=== PATIENT | male | born 1965 | race African-American/Black ===

== ENCOUNTER 2020-12-18 09:47 | Inpatient (IN) | payer MEDICAID, SELFPAY ==
[~2020-12-18] VITALS: Ht 182.9 cm; Wt 58.1 kg
[2020-12-18 09:51] VITALS: BP 128/73
[2020-12-18 10:57] LABS: BASOPHILS # (AUTO) 0.1 K/uL (0.00-0.22); BASOPHILS % (AUTO) 0.7 % (0.0-2.0); EOSINOPHILS % (AUTO) 0.4 % (0.0-4.0); HEMATOCRIT 30.5 % (36-52); HEMOGLOBIN 10.4 g/dL (12.0-18.0); LYMPHOCYTES # (AUTO) 1.1 K/uL (2.0-11.5); LYMPHOCYTES % (AUTO) 12.2 % (20.5-51.1); MEAN CORPUSCULAR HEMOGLOBIN 34 pg (27-31); MEAN CORPUSCULAR HGB CONC 34 g/dL (33-37); MEAN CORPUSCULAR VOLUME 100.6 fL (80-94); MONOCYTES # (AUTO) 0.5 K/uL (0.8-1.0); MONOCYTES % (AUTO) 5.7 % (1.7-9.3); NEUTROPHILS # (AUTO) 7.6 K/uL (1.8-7.7); PLATELET COUNT (AUTO) 390 K/uL (140-450); RED BLOOD CELL COUNT(AUTO) 3.03 MIL/uL (4.20-6.10); RED CELL DISTRIBUTION WIDTH 12.9 % (11.6-13.7); WHITE BLOOD COUNT (AUTO) 9.4 K/uL (4.8-10.8)
[2020-12-18 11:13] LABS: ALBUMIN 2.9 g/dL (3.4-5.0); ANION GAP 5.1 (8-16); ASPARTATE AMINOTRANSFERASE 23 U/L (15-37); CARBON DIOXIDE 30.2 mmol/L (21-32); CHLORIDE 99 mmol/L (98-107); CREATININE 1.2 mg/dL (0.6-1.3); GFR ARICAN-AMERICAN 81 mL/min (>90); POTASSIUM 4.3 mmol/L (3.5-5.1); SODIUM SERUM 130 mmol/L (136-145); TOTAL BILIRUBIN 0.4 mg/dL (0.0-1.0); UREA NITROGEN, BLOOD 19 mg/dL (7-18)
[2020-12-18 11:18] LABS: GLUCOSE 604 mg/dL (74-106)
[2020-12-18] MEDS ORDERED: INSULIN REGULAR, HUMAN 100 UNIT in NACL 0.9% 100 ML IV SCH ×4 (11:20→11:50)
[2020-12-18] MEDS ORDERED: NACL 0.9% 1,000 ML IV ONE ×2 (11:20→15:25)
[2020-12-18 13:15] LABS: BILIRUBIN,URINE NEGATIVE (NEGATIVE); BLOOD, URINE NEGATIVE (NEGATIVE); LEUKOCYTE ESTERASE ,URINE NEGATIVE (NEGATIVE); NITRITE, URINE NEGATIVE (NEGATIVE); UGLUCOSE 3+ (NEGATIVE)
[2020-12-18 13:32] LABS: COLOR,URINE YELLOW (YELLOW)
[2020-12-18 13:48] LABS: APPEARANCE,URINE CLEAR (CLEAR); RBC,URINE 0-5 /HPF (0-5); WBC,URINE 0-5 /HPF (0-5)
[2020-12-18] MEDS ORDERED: DEXT 5% / NACL 0.45% 1,000 ML IV ONE (15:05)
[2020-12-18] MEDS ORDERED: DEXTROSE 50% 50 ML SYR IVP PRN (15:30)
[2020-12-18 16:00] VITALS: BP 136/88
[2020-12-18] MEDS: BLOOD GLUCOSE MONITORING 1 DEV DEV FS SCH ×2 (17:24→21:44)
[2020-12-18] MEDS ORDERED: ACETAMINOPHEN 325 MG TAB PO PRN (18:00)
[2020-12-18] MEDS ORDERED: ONDANSETRON 4 MG/2 ML VIAL IM/IVP PRN (18:00)
[2020-12-18] MEDS ORDERED: guaiFENesin DM 200/20 MG-10 ML 10 ML UDC PO PRN (18:00)
[2020-12-18] MEDS ORDERED: DOCUSATE SODIUM 100 MG GELCAP PO PRN (18:00)
[2020-12-18] MEDS ORDERED: ZOLPIDEM 5 MG TAB PO PRN (18:00)
[2020-12-18] MEDS ORDERED: POTASSIUM CHLORIDE 10 MEQ TABER PO PRN (18:00)
[2020-12-18 18:31] LABS: BARBITURATE, URINE NEGATIVE ng/ml (NEG <=200); BENZODIAZEPINE, URINE NEGATIVE ng/mL (NEG <=200); CANNABINOID, URINE POSITIVE ng/mL (NEG <=50); COCAINE, URINE POSITIVE ng/mL (NEG <=300)
[2020-12-18 18:32] LABS: OPIATE, URINE NEGATIVE ng/mL (NEG <=2000); PHENCYCLIDINE SCREEN,URINE POSITIVE ng/mL (NEG <=25)
[2020-12-18] MEDS: NACL 0.9% 1,000 ML IV SCH (18:32)
[2020-12-18 18:50] LABS: CHOL/HDL RATIO 2.3 (1-4.5); FREE T4 (FREE THYROXINE) 0.99 ng/dL (0.76-1.46); MAGNESIUM 2.2 mg/dL (1.8-2.4); PHOSPHORUS 4.1 mg/dL (2.5-4.9); THYROID STIMULATING HORMONE 1.01 uIU/mL (0.34-3.74)
[2020-12-18 20:00] VITALS: BP 130/82
[2020-12-18] MEDS: HYDROcodone/APAP 7.5/325 MG 1 TAB PO PRN (21:35)
[2020-12-19] VITALS: BP 130/82
[2020-12-19] MEDS: HYDROcodone/APAP 7.5/325 MG 1 TAB PO PRN ×4 (02:06→20:31)
[2020-12-19] MEDS: NACL 0.9% 1,000 ML IV SCH ×3 (02:11→17:25)
[2020-12-19 04:00] VITALS: BP 128/84
[2020-12-19] MEDS: BLOOD GLUCOSE MONITORING 1 DEV DEV FS SCH ×4 (05:41→20:55)
[2020-12-19 06:32] LABS: BASOPHILS # (AUTO) 0.1 K/uL (0.00-0.22); BASOPHILS % (AUTO) 0.8 % (0.0-2.0); EOSINOPHILS # (AUTO) 0.1 K/uL (0-0.4); EOSINOPHILS % (AUTO) 0.8 % (0.0-4.0); HEMATOCRIT 28.2 % (36-52); HEMOGLOBIN 9.6 g/dL (12.0-18.0); LYMPHOCYTES # (AUTO) 1.8 K/uL (2.0-11.5); LYMPHOCYTES % (AUTO) 18.1 % (20.5-51.1); MEAN CORPUSCULAR HEMOGLOBIN 34 pg (27-31); MEAN CORPUSCULAR HGB CONC 34 g/dL (33-37); MEAN CORPUSCULAR VOLUME 100.7 fL (80-94); MONOCYTES # (AUTO) 0.5 K/uL (0.8-1.0); NEUTROPHILS # (AUTO) 7.5 K/uL (1.8-7.7); NEUTROPHILS % (AUTO) 75.3 % (42.2-75.2); PLATELET COUNT (AUTO) 348 K/uL (140-450); RED BLOOD CELL COUNT(AUTO) 2.79 MIL/uL (4.20-6.10); RED CELL DISTRIBUTION WIDTH 12.5 % (11.6-13.7)
[2020-12-19 07:09] LABS: ANION GAP 11.6 (8-16); CARBON DIOXIDE 23.9 mmol/L (21-32); CREATININE 0.9 mg/dL (0.6-1.3); POTASSIUM 4.5 mmol/L (3.5-5.1)
[2020-12-19 08:00] VITALS: BP 132/54
[2020-12-19 08:07] LABS: T4 (THYROXINE) 6.5 ug/dL (4.5-12.0)
[2020-12-19] MEDS: PANTOPRAZOLE 40 MG TABEC PO SCH (08:18)
[2020-12-19 12:00] VITALS: BP 136/73
[2020-12-19] MEDS: INSULIN LISPRO SLIDING SCALE 100 UNITS/ML VIAL SUBQ PRN ×3 (12:31→20:54)
[2020-12-19 16:00] VITALS: BP 135/76
[2020-12-19 20:00] VITALS: BP 128/76
[2020-12-20] VITALS: BP 124/72
[2020-12-20] MEDS: NACL 0.9% 1,000 ML IV SCH ×3 (03:20→20:00)
[2020-12-20 04:00] VITALS: BP 136/70
[2020-12-20] MEDS: BLOOD GLUCOSE MONITORING 1 DEV DEV FS SCH ×4 (06:16→21:09)
[2020-12-20 06:28] LABS: BASOPHILS % (AUTO) 0.6 % (0.0-2.0); EOSINOPHILS # (AUTO) 0.1 K/uL (0-0.4); HEMATOCRIT 28.4 % (36-52); HEMOGLOBIN 9.6 g/dL (12.0-18.0); LYMPHOCYTES # (AUTO) 1.7 K/uL (2.0-11.5); MEAN CORPUSCULAR HEMOGLOBIN 34 pg (27-31); MEAN CORPUSCULAR HGB CONC 34 g/dL (33-37); MEAN CORPUSCULAR VOLUME 100.1 fL (80-94); MONOCYTES # (AUTO) 0.4 K/uL (0.8-1.0); NEUTROPHILS # (AUTO) 4.1 K/uL (1.8-7.7); NEUTROPHILS % (AUTO) 65.4 % (42.2-75.2); PLATELET COUNT (AUTO) 356 K/uL (140-450); RED BLOOD CELL COUNT(AUTO) 2.84 MIL/uL (4.20-6.10); RED CELL DISTRIBUTION WIDTH 12.4 % (11.6-13.7); WHITE BLOOD COUNT (AUTO) 6.3 K/uL (4.8-10.8)
[2020-12-20 06:34] LABS: ANION GAP 10.7 (8-16); CARBON DIOXIDE 24.6 mmol/L (21-32); POTASSIUM 4.3 mmol/L (3.5-5.1)
[2020-12-20 08:00] VITALS: BP 131/79
[2020-12-20] MEDS: glipiZIDE 10 MG TAB PO SCH (08:49)
[2020-12-20] MEDS: PANTOPRAZOLE 40 MG TABEC PO SCH (08:49)
[2020-12-20] MEDS: metFORMIN 500 MG TAB PO SCH ×2 (08:49→16:40)
[2020-12-20] MEDS: HYDROcodone/APAP 7.5/325 MG 1 TAB PO PRN ×3 (08:49→21:05)
[2020-12-20] MEDS: NICOTINE TRANSD SYS 14 MG/24 HR PATCH TD SCH (08:50)
[2020-12-20] MEDS: INSULIN LISPRO SLIDING SCALE 100 UNITS/ML VIAL SUBQ PRN ×2 (12:41→21:13)
[2020-12-20 16:00] VITALS: BP 129/73
[2020-12-20 20:00] VITALS: BP 138/88
[2020-12-21] MEDS: HYDROcodone/APAP 7.5/325 MG 1 TAB PO PRN (03:25)
[2020-12-21 04:00] VITALS: BP 135/88
[2020-12-21] MEDS: NACL 0.9% 1,000 ML IV SCH (04:20)
[2020-12-21] MEDS: glipiZIDE 10 MG TAB PO SCH (06:21)
[2020-12-21] MEDS: INSULIN LISPRO SLIDING SCALE 100 UNITS/ML VIAL SUBQ PRN (07:42)
[2020-12-21] MEDS: BLOOD GLUCOSE MONITORING 1 DEV DEV FS SCH (07:43)
[2020-12-21] MEDS: metFORMIN 500 MG TAB PO SCH (08:55)
[2020-12-21] MEDS: PANTOPRAZOLE 40 MG TABEC PO SCH (08:55)
[2020-12-21] MEDS: NICOTINE TRANSD SYS 14 MG/24 HR PATCH TD SCH (08:55)
[2020-12-21] MEDS ORDERED: ATORVASTATIN 20 MG TAB PO SCH (09:00)
[2020-12-21] MEDS ORDERED: ASPIRIN 81 MG TAB.CHEW PO SCH (09:00)
[2020-12-21 10:07] LABS: POTASSIUM 3.4 mmol/L (3.5-5.1)
[2020-12-21 10:08] LABS: ANION GAP 9.9 (8-16); CARBON DIOXIDE 31.5 mmol/L (21-32); CREATININE 1.2 mg/dL (0.6-1.3)
[2020-12-21 10:53] VITALS: BP 137/86
[2020-12-21] MEDS ORDERED: NICO14TD30 TD (11:12)
[2020-12-21] MEDS ORDERED: PANT40EC56 PO (11:12)
[2020-12-21] MEDS ORDERED: GLIP10TA12 PO (11:12)
[2020-12-21] MEDS ORDERED: METF-1243 PO (11:12)
[2020-12-21] MEDS ORDERED: ATOR20TA40 PO (11:12)
[2020-12-21] MEDS ORDERED: glucometer (11:12)
[2020-12-21] MEDS ORDERED: BLOO-224 INH (11:12)
[2020-12-21] MEDS ORDERED: ASPI81CT95 PO (11:12)
[2020-12-21] MEDS ORDERED: lancets (11:12)
[2020-12-21] MEDS ORDERED: GAUZE TP SCH (13:00)
== END 2020-12-21 11:25 | disposition home or self-care (01) | DRG 52 ==
LOC: MED 09:47 → MTU 15:26
PROVIDERS: ADMIT Family Medicine; ATTEND Family Medicine
DX: G92.9 Unspecified toxic encephalopathy (principal); E11.42 Type 2 diabetes mellitus with diabetic polyneuropathy; E11.51 Type 2 diabetes mellitus with diabetic peripheral angiopathy without gangrene; E44.0 Moderate protein-calorie malnutrition; E87.1 Hypo-osmolality and hyponatremia; L97.519 Non-pressure chronic ulcer of other part of right foot with unspecified severity; D64.9 Anemia, unspecified; E11.621 Type 2 diabetes mellitus with foot ulcer; E11.65 Type 2 diabetes mellitus with hyperglycemia; F17.210 Nicotine dependence, cigarettes, uncomplicated; I10 Essential (primary) hypertension; Z20.822 Contact with and (suspected) exposure to COVID-19; F15.129 Other stimulant abuse with intoxication, unspecified; F16.129 Hallucinogen abuse with intoxication, unspecified; F14.129 Cocaine abuse with intoxication, unspecified; F12.129 Cannabis abuse with intoxication, unspecified; T25.021A Burn of unspecified degree of right foot, initial encounter; W20.8XXA Other cause of strike by thrown, projected or falling object, initial encounter; Z59.00 Homelessness unspecified; Y93.89 Activity, other specified; Y92.89 Other specified places as the place of occurrence of the external cause; Y99.8 Other external cause status; Z68.1 Body mass index [BMI] 19.9 or less, adult; Z71.51 Drug abuse counseling and surveillance of drug abuser
CPT/HCPCS: 36415; 70450; 71045; 72125; 73630; 80048; 80053; 80305; 81001; 82009; 82150; 82803; 82948; 83036; 83690; 83735; 83880; 83930; 84100; 84436; 84439; 84443; 84479; 84484; 85025; 85610; 85730; 87040; 87081; 93005; 93925; 93970; 96365; 96366; 99285; G0482; J1815; Q0092

== ENCOUNTER 2021-02-05 17:14 | Emergency (ER) | payer MEDICAID, SELFPAY ==
[~2021-02-05] VITALS: Ht 175.3 cm; Wt 77.1 kg
[~2021-02-05 17:14] MED LIST: ASPI81CT95 PO; ATOR20TA40 PO; BLOO-224 INH; GLIP10TA12 PO; METF-1243 PO; NICO14TD30 TD; PANT40EC56 PO; glucometer; lancets
[2021-02-05 17:16] VITALS: BP 170/90
[2021-02-05 19:57] LABS: BASOPHILS % (AUTO) 0.1 % (0.0-2.0); EOSINOPHILS % (AUTO) 0.1 % (0.0-4.0); HEMATOCRIT 38.3 % (36-52); HEMOGLOBIN 13.2 g/dL (12.0-18.0); LYMPHOCYTES # (AUTO) 0.8 K/uL (2.0-11.5); LYMPHOCYTES % (AUTO) 7.4 % (20.5-51.1); MEAN CORPUSCULAR HEMOGLOBIN 34 pg (27-31); MEAN CORPUSCULAR HGB CONC 35 g/dL (33-37); MEAN CORPUSCULAR VOLUME 98.5 fL (80-94); MONOCYTES # (AUTO) 0.3 K/uL (0.8-1.0); MONOCYTES % (AUTO) 3.2 % (1.7-9.3); NEUTROPHILS # (AUTO) 9.6 K/uL (1.8-7.7); NEUTROPHILS % (AUTO) 89.2 % (42.2-75.2); PLATELET COUNT (AUTO) 504 K/uL (140-450); RED BLOOD CELL COUNT(AUTO) 3.89 MIL/uL (4.20-6.10); RED CELL DISTRIBUTION WIDTH 12.7 % (11.6-13.7); WHITE BLOOD COUNT (AUTO) 10.8 K/uL (4.8-10.8)
[2021-02-05 20:55] LABS: ALBUMIN 2.8 g/dL (3.4-5.0); ANION GAP 7.9 (8-16); ASPARTATE AMINOTRANSFERASE 114 U/L (15-37); CARBON DIOXIDE 31.3 mmol/L (21-32); CHLORIDE 94 mmol/L (98-107); CREATININE 1.2 mg/dL (0.6-1.3); GFR ARICAN-AMERICAN 81 mL/min (>90); LIPASE 113 U/L (73-393); POTASSIUM 5.2 mmol/L (3.5-5.1); SODIUM SERUM 128 mmol/L (136-145); TOTAL BILIRUBIN 0.8 mg/dL (0.0-1.0); UREA NITROGEN, BLOOD 34 mg/dL (7-18)
[2021-02-05 21:01] LABS: GLUCOSE 477 mg/dL (74-106)
[2021-02-05] MEDS ORDERED: ONDANSETRON 4 MG/2 ML VIAL IVP ONE (23:25)
[2021-02-05] MEDS ORDERED: NACL 0.9% 1,000 ML IV STA (23:53)
[2021-02-06] MEDS ORDERED: MORPHINE SULFATE 4 MG/ML SYR IVP ONE ×2 (00:05→02:45)
[2021-02-06] MEDS ORDERED: ONDANSETRON 4 MG/2 ML VIAL ONE (00:29)
[2021-02-06] MEDS ORDERED: PANT40EC PO (02:34)
[2021-02-06] MEDS ORDERED: IBUP-2213 PO (02:34)
[2021-02-06] MEDS ORDERED: ONDA-188 SL (02:34)
[2021-02-06] MEDS ORDERED: METF-1022 PO (02:34)
[2021-02-06] MEDS ORDERED: ONDANSETRON 4 MG/2 ML VIAL IVP ONE (02:45)
[2021-02-06] MEDS ORDERED: GABA300C PO (02:46)
[2021-02-06] MEDS ORDERED: GLIP10TA12 PO (02:46)
[2021-02-06 03:35] VITALS: BP 140/76
== END 2021-02-06 03:51 | disposition home or self-care (01) ==
LOC: MED 17:14
DX: R06.02 Shortness of breath (principal); R10.84 Generalized abdominal pain; R11.2 Nausea with vomiting, unspecified; M79.604 Pain in right leg; M79.605 Pain in left leg; E11.9 Type 2 diabetes mellitus without complications; I10 Essential (primary) hypertension; F17.210 Nicotine dependence, cigarettes, uncomplicated; Z79.899 Other long term (current) drug therapy; Z79.82 Long term (current) use of aspirin; Z79.84 Long term (current) use of oral hypoglycemic drugs
CPT/HCPCS: 71045; 76705; 80053; 83690; 84484; 85025; 93005; 96361; 96374; 96375; 96376; 99285; G0482; J2270; J2405; J7030; Q0092

== ENCOUNTER 2021-02-18 14:29 | Emergency (ER) | payer MEDICAID ==
[~2021-02-18] VITALS: Ht 182.9 cm; Wt 56.2 kg
[~2021-02-18 14:29] MED LIST changes: +GABA300C PO; +IBUP-2213 PO; +METF-1022 PO; +ONDA-188 SL; +PANT40EC PO
[2021-02-18 14:30] VITALS: BP 145/95
--- NOTE | 2021-02-18 14:35 | NUR ---
Pt reports 09/29, "irritating/constant," non-radiating pain to mid abdomen. Patient reports uncontrolled blood sugar due to not having medications due to insurance reasons. Pt reports polydipsia, polyuria. Skin pink/warm/dry. Pt denies nausea, vomiting, diarrhea, constipation, back pain, headache, blurry vision. Remains in chair A at this time. PMH: DM, HTN, HLD Meds: lipitor, metformin, Lantus, lisinopril A: ibuprofen
--- NOTE | 2021-02-18 14:35 | NUR ---
56 Y/O MALE BIBA FROM HOME C/O HIGH BLOOD SUGAR. AT HOME, PTS GLUCOMETER READ 800. EMS REPORTS "HI". +NAUSEA, ABDOMINAL PAIN AND LEG PAIN. PT REPORTS HE IS WAITING ON MEDS D/T INSURANCE REASONS. +POLYDIPSIA/POLYURIA. PMH:DM, HTN ALLERGIES:MOTRIN
[2021-02-18] MEDS ORDERED: NACL 0.9% 1,000 ML IV ONE ×2 (15:25→15:40)
[2021-02-18 15:57] LABS: BASOPHILS % (AUTO) 0.4 % (0.0-2.0); HEMATOCRIT 30.5 % (36-52); HEMOGLOBIN 10.4 g/dL (12.0-18.0); LYMPHOCYTES # (AUTO) 0.7 K/uL (2.0-11.5); LYMPHOCYTES % (AUTO) 7.9 % (20.5-51.1); MEAN CORPUSCULAR HEMOGLOBIN 34 pg (27-31); MEAN CORPUSCULAR HGB CONC 34 g/dL (33-37); MEAN CORPUSCULAR VOLUME 98.6 fL (80-94); MONOCYTES # (AUTO) 0.7 K/uL (0.8-1.0); MONOCYTES % (AUTO) 7.3 % (1.7-9.3); NEUTROPHILS % (AUTO) 84.4 % (42.2-75.2); PLATELET COUNT (AUTO) 371 K/uL (140-450); RED BLOOD CELL COUNT(AUTO) 3.09 MIL/uL (4.20-6.10); RED CELL DISTRIBUTION WIDTH 13.1 % (11.6-13.7); WHITE BLOOD COUNT (AUTO) 9.5 K/uL (4.8-10.8)
[2021-02-18 16:21] LABS: ANION GAP 14.5 (8-16); CARBON DIOXIDE 24.8 mmol/L (21-32); CREATININE 0.9 mg/dL (0.6-1.3); POTASSIUM 4.3 mmol/L (3.5-5.1)
[2021-02-18] MEDS ORDERED: ACET-10509 PO (16:32)
[2021-02-18] MEDS ORDERED: METF-1243 PO (16:32)
[2021-02-18] MEDS ORDERED: SULF-59 PO (16:32)
[2021-02-18 17:52] VITALS: BP 145/95
--- NOTE | 2021-02-18 17:54 | NUR ---
Patient discharged with v/s stable. Written and verbal after care instructions given FOR HYPERGLYCEMIA AND SKIN ABSCESSES and explained. Patient alert, oriented and verbalized understanding of instructions. Ambulatory with steady gait. All questions addressed prior to discharge. ID band removed. Patient advised to follow up with PMD. Rx of given. Patient educated on indication of medication including possible reaction and side effects. Opportunity to ask questions provided and answered.
== END 2021-02-18 17:54 | disposition home or self-care (01) ==
LOC: MED 14:29
DX: E11.65 Type 2 diabetes mellitus with hyperglycemia (principal); L02.512 Cutaneous abscess of left hand; I10 Essential (primary) hypertension; F17.200 Nicotine dependence, unspecified, uncomplicated; Z98.890 Other specified postprocedural states; Z79.84 Long term (current) use of oral hypoglycemic drugs; Z79.899 Other long term (current) drug therapy; Z88.6 Allergy status to analgesic agent; Z79.82 Long term (current) use of aspirin
CPT/HCPCS: 36415; 80048; 85025; 96360; 96361; 99283; J7030

== ENCOUNTER 2021-02-28 18:37 | Emergency (ER) | payer MEDICAID ==
[~2021-02-28] VITALS: Ht 182.9 cm; Wt 63.5 kg
[~2021-02-28 18:37] MED LIST changes: +ACET-10509 PO; +SULF-59 PO
[2021-02-28 19:00] VITALS: BP 136/68
[2021-02-28] MEDS ORDERED: NACL 0.9% 1,000 ML IV ONE (20:20)
--- NOTE | 2021-02-28 22:20 | NUR ---
SEEN AND EXAMINED BY ERMD AND FOR D/C
[2021-02-28] MEDS ORDERED: ALBU0.0912 IH (22:37)
[2021-02-28 22:39] LABS: BASOPHILS # (AUTO) 0.1 K/uL (0.00-0.22); BASOPHILS % (AUTO) 0.9 % (0.0-2.0); HEMATOCRIT 28.5 % (36-52); HEMOGLOBIN 9.6 g/dL (12.0-18.0); LYMPHOCYTES # (AUTO) 0.5 K/uL (2.0-11.5); LYMPHOCYTES % (AUTO) 4.3 % (20.5-51.1); MEAN CORPUSCULAR HEMOGLOBIN 34 pg (27-31); MEAN CORPUSCULAR HGB CONC 34 g/dL (33-37); MEAN CORPUSCULAR VOLUME 99.6 fL (80-94); MONOCYTES # (AUTO) 0.6 K/uL (0.8-1.0); NEUTROPHILS # (AUTO) 9.5 K/uL (1.8-7.7); NEUTROPHILS % (AUTO) 88.8 % (42.2-75.2); PLATELET COUNT (AUTO) 500 K/uL (140-450); RED BLOOD CELL COUNT(AUTO) 2.86 MIL/uL (4.20-6.10); RED CELL DISTRIBUTION WIDTH 13.2 % (11.6-13.7); WHITE BLOOD COUNT (AUTO) 10.7 K/uL (4.8-10.8)
[2021-02-28 22:40] VITALS: BP 136/68
--- NOTE | 2021-02-28 22:40 | NUR ---
Patient discharged with v/s stable. Written and verbal after care instructions given and explained. Patient alert, oriented and verbalized understanding of instructions. Ambulatory with steady gait. All questions addressed prior to discharge. ID band removed. Patient advised to follow up with PMD. Rx of PROVENTIL HFA MDI given. Patient educated on indication of medication including possible reaction and side effects. Opportunity to ask questions provided and answered.
[2021-02-28 23:23] LABS: ANION GAP 11.3 (8-16); CARBON DIOXIDE 27.9 mmol/L (21-32); POTASSIUM 4.2 mmol/L (3.5-5.1)
[2021-03-01] MEDS ORDERED: SULF-59 PO (04:39)
== END 2021-02-28 22:40 | disposition home or self-care (01) ==
LOC: MED 18:37
DX: U07.1 COVID-19 (principal); E11.9 Type 2 diabetes mellitus without complications; I10 Essential (primary) hypertension; Z88.6 Allergy status to analgesic agent; Z79.899 Other long term (current) drug therapy
CPT/HCPCS: 36415; 71045; 80048; 85025; 93005; 99285

== ENCOUNTER 2021-03-01 03:52 | Emergency (ER) | payer MEDICAID ==
[~2021-03-01] VITALS: Ht 182.9 cm; Wt 56.2 kg
[~2021-03-01 03:52] MED LIST changes: +ALBU0.0912 IH
[2021-03-01 04:01] VITALS: BP 122/81
[2021-03-01] MEDS ORDERED: SULF-59 PO (04:39)
[2021-03-01] MEDS ORDERED: SULFAMETH/TRIMETH DS 800/160MG 1 TAB PO ONE (04:40)
[2021-03-01 04:53] VITALS: BP 122/81
--- NOTE | 2021-03-01 04:57 | NUR ---
56 Y/O MALE BIB SELF, C/O PAIN 8/10 ON R HAND LAC X2 WEEKS AGO. +N/V/D. SKIN IS PINK/WARM/DRY; AAOX4 WITH STEADY GAIT WITH THE USE OF A WALKER; LUNGS CLEAR BL; HR EVEN AND REGULAR; PT DENIES ANY FEVER, CP AT THIS TIME; PATIENT STATES PAIN OF 8/10 AT THIS TIME; VSS. ER MD MADE AWARE OF PT STATUS. HX: HTN, DM, NEUROPATHY ALL: IBUPROFEN
--- NOTE | 2021-03-01 04:57 | NUR ---
PT SEEN BY DOCTOR, NO NURSING INTERVENTIONS NEEDED
== END 2021-03-01 04:57 | disposition home or self-care (01) ==
LOC: MED 03:52
DX: S61.401A Unspecified open wound of right hand, initial encounter (principal); E11.9 Type 2 diabetes mellitus without complications; I10 Essential (primary) hypertension; Z79.82 Long term (current) use of aspirin; Z88.8 Allergy status to other drugs, medicaments and biological substances; Z79.84 Long term (current) use of oral hypoglycemic drugs; Z79.899 Other long term (current) drug therapy; X58.XXXA Exposure to other specified factors, initial encounter; Y93.89 Activity, other specified; Y92.89 Other specified places as the place of occurrence of the external cause; Y99.8 Other external cause status
CPT/HCPCS: 99283